=== PATIENT | male | born 1950 | race Caucasian/White ===

== ENCOUNTER 2025-06-21 18:36 | Emergency (ER) | payer MEDICARE, OTHER, SELFPAY ==
[2025-06-21 18:39] VITALS: BP 177/105
[2025-06-21 18:40] VITALS: BP 177/105; BMI 30.2
[2025-06-21 18:59] LABS: Hematocrit 40.4 % (39.0-52.0); Hemoglobin 13.3 g/dL (13.0-18.0); Mean Corp Hgb Conc. 32.9 g/dL (33.0-37.0); Mean Corpuscular Volume 93.3 fL (80.0-94.0); Nucleated Red Blood Cells % 0 % (-); Platelet Count 225 10^3/uL (130-400); Red Cell Dist. Width 12.5 % (11.5-14.5)
[2025-06-21 19:00] VITALS: BP 189/85
[2025-06-21 19:10] LABS: ALT (SGPT) < 10 U/L (0-50); AST (SGOT) 18 U/L (17-59); Albumin 4.2 g/dl (3.5-5.0); Alkaline Phosphatase 84 U/L (38-126); Blood Urea Nitrogen 10 mg/dl (9-20); Calcium 9.0 mg/dl (8.4-10.2); Carbon Dioxide 31 mmol/L (22-30); Chloride 103 mmol/L (98-107); Estimated Creatinine Clearance 101 ml/min; Glucose 107 mg/dl (70-99); Potassium 3.9 mmol/L (3.5-5.1); Sodium 140 mmol/L (135-145); Total Protein 7.0 g/dl (6.3-8.2); eGFR > 60.00
--- NOTE | 2025-06-21 19:23 | ED.GENMED ---
History of Present Illness
General
Chief Complaint: Change in Mental Status
Source: patient
Time Seen by Provider: 06/21/25 18:48
History of Present Illness
History of Present Illness:
This patient is a 74-year-old male who was reportedly difficult to arouse at 5 PM today. They did state that he was climbing out of his chair at approximately 4 PM. Patient is awake alert here in the ER without any complaints. He denies chest
pain, shortness of breath, headache, dizziness, fever, chills, nausea, vomiting, abdominal pain. He does report constipation. He is hungry. He states that staff gives him medications that make him very sleepy and he suspects this would happen
today
Past History
Past History
ED Past Medical History: Psychiatric and Other (Parkinson's, A-fib, hyperlipidemia)
Social History
Tobacco: Non-smoker
Alcohol: None
Drug: None
Living: detention
Phy Exam
Physical Exam
Physical Exam:
GENERAL: Alert , in no apparent distress
EYE: pupils equal and reactive
NECK: Supple, no significant adenopathy.
ENT: o/p clr, mmm.
CARDIAC: Regular rate and rhythm .
LUNGS: Clear breath sounds bilaterally, no acute respiratory distress, no wheezes/rales/rhonchi
ABDOMEN: Soft, without focal tenderness, no r/g, no cvat
NEUROLOGICAL: Alert and oriented x 3, lucid, resting tremor bilateral upper extremities, grossly nonfocal
SKIN: Warm and dry, skin intact.
MUSCULOSKELETAL: No edema, well perfused.
PSYCH: Normal and appropriate interaction.
Course
Orders/Labs/Results
Orders:
Orders
06/21/25 18:50
CMP [Comprehensive Metabolic Panel] Urgent
Complete Blood Count/With Diff Urgent
Abnormal Lab Results
06/21/25
18:50
RBC 4.33 L 10^6/uL
(4.70-6.10)
MCHC 32.9 L g/dL
(33.0-37.0)
Lymphocytes % 17.4 L %
(20.5-51.1)
Carbon Dioxide 31 H mmol/L
(22-30)
Creatinine 0.5 L mg/dL
(0.7-1.3)
Glucose 107 H mg/dl
(70-99)
06/21/25 18:50
06/21/25 18:50
Vital Signs
Initial and Last Documented VS:
Initial Vital Signs
BP Pulse Ox
177/105 96
06/21/25 18:39 06/21/25 18:39
Last Documented Vital Signs
Temp Pulse Resp BP Pulse Ox
98.0 F 71 18 145/69 97
06/21/25 18:40 06/21/25 18:40 06/21/25 18:40 06/21/25 20:00 06/21/25 20:30
*Pulse Oximetry
SaO2: 97
Oxygen Mode of Delivery: Room air
Patient hypoxic: no
*Critical Care Note
Total Time (30-74mins, 75-104mins- exclusive of procedures): Not Applicable
Update Note
Update Note:
Patient presents to the Emergency Department with ___mental status change
Number and Complexity of Problems Addressed at the Encounter
� Chronic conditions affecting care:
� Acute Exacerbation and/or Progression of Chronic Illness:
� Differential Diagnosis includes: But not limited to psychiatric disorder, medication effect, electrolyte disorder, etc. etc.
Amount and/or Complexity of Data to be Reviewed and Analyzed
� I performed an independent evaluation of and my interpretation is:
EKG:
CT:
Xrays:
Laboratory Studies: Generally unremarkable
Other:
� Review of other/old records reveals:
� Clinical information was obtained by an independent historian:
� Prescriptions/Medications Considered but not given:
� Further testing considered but not performed:
Risk of Complications and/or Morbidity or Mortality of Patient Management
� Social determinants of health affecting care:
� Discussion with other providers (PCP, Hospitalists, Consultants, etc):
� Escalation of care including admission/observation vs risk of discharge considered: 7:26 PM patient awake alert fully oriented here, no mental status changes noted, neuro at baseline. No indications for hospitalization at this
time. Do not suspect acute neurological events given his unremarkable exam at this time.
ED Attending Note
-
Portions of this chart may have been created with voice recognition software.� Occasional wrong word or��sound alike� substitutions may have occurred due to the inherent limitations of voice recognition software.
Discharge Plan
Departure
Patient Disposition: Assisted/SNF
Date of Disposition: 06/21/25
Time of Disposition: 19:24
Patient with high blood pressure during this ER visit?: Yes
Condition: Good
Discharge Problem:
Reported altered mental status
Instructions: Altered Mental Status (DC), BLOOD PRESSURE
Referrals:
Denis Washington MD [Family Provider]
Activity Restrictions/Additional Instructions:
IF YOU DEVELOP FEVER, CHEST PAIN, SEVERE HEADACHE, VOMITING, CONFUSION, OR OTHER WORRISOME SIGNS, PLEASE RETURN TO THE ER IMMEDIATELY!
Interventions
Interventions:
*Risk Screen - Suicide Last Done: 06/21/25 18:40
*General Assessment Last Done: 06/21/25 18:40
*Neglect/Abuse Screening Last Done: 06/21/25 18:40
*ED- Fall Risk Assessment Last Done: 06/21/25 18:40
*ED COVID-19 Vaccine History Last Done: 06/21/25 18:40
*Nursing Disposition Last Done: 06/21/25 20:39
ED- Pulmonary Assessment Last Done: 06/21/25 20:39
ED-Psychological Assessment Last Done: 06/21/25 20:39
ED- Neurological Assessment Last Done: 06/21/25 18:40
Discharge Date and Time
Discharge Date/Time: 06/21/25 20:40
Print Language: GREENLANDIC
[2025-06-21 20:00] VITALS: BP 145/69
== END 2025-06-21 20:40 ==
LOC: EMR 18:36
PROVIDERS: EMERGENCY PHYSICIAN Emergency Medicine; FAMILY PHYSICIAN Internal Medicine
DX: R41.82 Altered mental status, unspecified (principal); I48.91 Unspecified atrial fibrillation; E78.5 Hyperlipidemia, unspecified; G20.A1 Parkinson's disease without dyskinesia, without mention of fluctuations
CPT/HCPCS: 99283; 80053; 85025